=== PATIENT | female | born 1985 | race African-American/Black ===

== ENCOUNTER 2017-11-28 16:23 | Outpatient (REF) | payer MEDICAID, SELFPAY ==
--- NOTE | 2017-11-28 15:30 | PAPFT_PTH ---
PATIENT: Magnolia Gipson LOC: [facility]#:[id number] AGE/SX: 32/F ROOM: RE11/28/[address]: Dottie Mohan : 1985 BED: DIS: 11/28/2017 SPEC #: [id number] RECD: 11/29/17 12:55 STATUS: MCKAY REAreli #: [id number] OLIVIA: 11/28/17 15:[address]: Dottie Mohan DEPT: [facility] Cytology RECD BY: Alexandra Ross Tissues: 1 - CX/ENDOCX FOR PAP SMEARS Procedures: PAP THIN PREP/UVM Screening HPV DNA PROBE Comments: [id number] (CHLAMYDIA GC)
[2017-11-30 14:59] LABS: Chlamydia Result Negative; GC Result Negative; Specimen Description SEE COMMENTS
== END 2017-11-28 16:24 ==
LOC: NCHCN 16:23
PROVIDERS: PCP Family Medicine; Visit Provider Family Medicine
DX: Z11.3 Encounter for screening for infections with a predominantly sexual mode of transmission (principal); Z12.4 Encounter for screening for malignant neoplasm of cervix; Z11.51 Encounter for screening for human papillomavirus (HPV)
CPT/HCPCS: 87491; 87591; 88142; 87624

== ENCOUNTER 2017-11-30 15:41 | Outpatient (CLI) | payer MEDICAID, SELFPAY ==
[2017-11-30 17:09] LABS: HCT 37.9 % (36.0-46.0); HGB 12.5 g/dL (12.0-15.5); Mean Corpuscular Hemoglobin 30.7 pg (27.0-33.0); Mean Corpuscular Volume 93.1 fL (80-95); Mean Platelet Volume 9.3 fL (8.0-11.0); Platelet Count 366 x1000/uL (130-400); RBC 4.07 m/cumm (4.00-5.20); RBC Distribution Width 13.1 % (11.7-14.6); White Blood Cell Count 11.08 k/cumm (4.4-10.8)
[2017-12-02 20:24] LABS: ALT 37 U/L (7-45); ActiTest Grade A0; ActiTest Interpretation no activity; ActiTest Score 0.14; Alpha-2-Macroglobulin 172 mg/dL (100 - 280); Apoliprotein A1 147 mg/dL (>=140); Bilirubin, Total 0.3 mg/dL (<=1.2); FibroTest Interpretation no fibrosis; FibroTest Score 0.05; FibroTest Stage F0; GGT 36 U/L (5 - 36); Haptoglobin 173 mg/dL (30 - 200)
== END 2017-11-30 15:42 ==
PROVIDERS: PCP Family Medicine; Visit Provider Family Medicine
DX: B19.20 Unspecified viral hepatitis C without hepatic coma (principal)
CPT/HCPCS: 36415; 82172; 82247; 82977; 83010; 83883; 84460; 85027

== ENCOUNTER 2017-12-06 11:43 | Outpatient (CLI) | payer MEDICAID, SELFPAY ==
[2017-12-07 11:57] LABS: HIV-1/2 Ag & Ab Screen Negative (NEGAT)
[2017-12-07 12:06] LABS: Hepatitis B Surface Ag Negative (NEGAT)
[2017-12-07 12:29] LABS: Hep A Total Ab w Rflx IgM Positive (NEGAT)
[2017-12-07 12:37] LABS: Hep B Core Antibody Negative (NEGAT)
[2017-12-08 09:40] LABS: HCV Genotype 1a (Undetected)
[2017-12-14 09:57] LABS: Hep A Antibody IgM Negative (NEGAT)
== END 2017-12-06 11:44 ==
PROVIDERS: PCP Family Medicine; Visit Provider Family Medicine
DX: B19.20 Unspecified viral hepatitis C without hepatic coma (principal); Z11.4 Encounter for screening for human immunodeficiency virus [HIV]
CPT/HCPCS: 36415; 86704; 86709; 87340; 87389; 87521

== ENCOUNTER 2018-01-24 15:06 | Outpatient (REF) | payer MEDICAID, SELFPAY ==
[2018-01-24 15:29] LABS: Bilirubin Negative (Negative); Blood Negative (Negative); Clarity Sl Cloudy; Glucose Negative (Negative); Ketones Negative (Negative); Leukocyte Esterase Negative (Negative); Nitrite Negative (Negative); Urobilinogen 0.2 EU/dL (Up TO 0.2)
[2018-01-26 13:26] LABS: Chlamydia Result Negative; GC Result Negative; Specimen Description URINE
== END 2018-01-24 15:26 ==
LOC: NCHCN 15:06
PROVIDERS: PCP Family Medicine; Visit Provider Nurse Practitioner Family
DX: R10.2 Pelvic and perineal pain (principal)
CPT/HCPCS: 87491; 87591; 81003; 87480; 87510; 87660

== ENCOUNTER 2018-07-19 12:00 | Outpatient (CLI) | payer MEDICAID, SELFPAY ==
[2018-07-19 13:01] LABS: HCG Quant, Pregnancy 1 mIU/mL (1-3)
== END 2018-07-19 12:20 ==
PROVIDERS: Obstetrics & Gynecology Gynecology; PCP Family Medicine; Visit Provider Obstetrics & Gynecology
DX: Z34.91 Encounter for supervision of normal pregnancy, unspecified, first trimester (principal); Z01.84 Encounter for antibody response examination
CPT/HCPCS: 36415; 86850; 86900; 86901; 84702

== ENCOUNTER 2018-07-25 09:35 | Outpatient (CLI) | payer MEDICAID, SELFPAY ==
[2018-07-25 11:24] LABS: HCG Quant, Pregnancy 1 mIU/mL (1-3)
== END 2018-07-25 09:55 ==
PROVIDERS: Obstetrics & Gynecology Gynecology; PCP Family Medicine; Visit Provider Obstetrics & Gynecology
DX: Z34.91 Encounter for supervision of normal pregnancy, unspecified, first trimester (principal)
CPT/HCPCS: 36415; 84702

== ENCOUNTER 2019-05-08 21:40 | Outpatient (REF) | payer MEDICAID, SELFPAY ==
[2019-05-08 20:16] LABS: *AMPHETAMINES SCREEN URINE Negative (Negative); *BARBITURATES SCREEN URINE Negative (Negative); *BENZODIAZEPINES SCREEN URINE Negative (Negative); Cannabinoids THC Negative (Negative); Cocaine Screen,Urine POSITIVE (Negative); METHADONE URINE SCREEN Negative (Negative); OPIATES URINE SCREEN Negative (Negative)
[2019-05-08 20:22] LABS: Tricyclic Antidepressants Negative (Negative)
[2019-05-10 14:15] LABS: Chlamydia Result Negative (Negative); GC Result Negative (Negative)
[2019-05-15 13:58] LABS: Buprenorphine Negative; Norbuprenorphine Negative
== END 2019-05-08 22:00 ==
LOC: LBN 21:40
PROVIDERS: PCP Family Medicine; Visit Provider Advanced Practice Midwife
DX: Z34.91 Encounter for supervision of normal pregnancy, unspecified, first trimester (principal); Z11.3 Encounter for screening for infections with a predominantly sexual mode of transmission
CPT/HCPCS: 80307; 87491; 87591; 87086

== ENCOUNTER 2019-05-22 11:03 | Outpatient (CLI) | payer MEDICAID, SELFPAY ==
[2019-05-22 11:38] LABS: Abs Immature Grans 0.02 k/cumm (0.0-0.09); Absolute Basophil Count 0.03 k/cumm (0.0-0.2); Absolute Eosinophil Count 0.19 k/cumm (0.0-0.7); Absolute Lymphocyte Count 2.31 k/cumm (1.2-3.4); Absolute Monocyte Count 0.68 k/cumm (0.11-0.7); Absolute Neutrophil Count 6.18 k/cumm (1.2-6.7); Basophils % 0.3; HCT 34.1 % (36.0-46.0); HGB 11.2 g/dL (12.0-15.5); Immature Grans % 0.2 %; Lymphocytes % 24.5; Mean Corp. HGB Concentration 32.8 g/dL (32.0-36.0); Mean Corpuscular Hemoglobin 30.9 pg (27.0-33.0); Mean Corpuscular Volume 94.2 fL (80-95); Mean Platelet Volume 8.9 fL (8.0-11.0); Monocytes % 7.2; Neutrophils % 65.8; Platelet Count 343 x1000/uL (130-400); RBC 3.62 m/cumm (4.00-5.20); RBC Distribution Width 13.3 % (11.7-14.6); White Blood Cell Count 9.41 k/cumm (4.4-10.8)
[2019-05-22 12:32] LABS: ALT 27 U/L (14-59); AST 14 U/L (15-37); Albumin 3.1 g/dL (3.4-5.0); Alkaline Phosphatase 49 U/L (46-116); Bilirubin, Direct 0.07 mg/dL (0.00-0.20); Bilirubin, Total 0.2 mg/dL (0.2-1.0); TSH (W/Ref FT4) 1.77 uIU/mL (0.36-3.74); Total Protein 6.7 g/dL (6.4-8.2)
[2019-05-23 09:33] LABS: Hepatitis B Surface Ag Negative (Negative)
[2019-05-23 11:07] LABS: HIV-1/2 Ag & Ab Screen Negative (Negative)
[2019-05-23 11:18] LABS: Hepatitis C Ab w Rflx HCV PCR Reactive (Negative)
[2019-05-23 12:01] LABS: Rubella IgG Ab (UVM) Positive (See Note); Varicella IgG Antibody Positive (See Note)
[2019-05-23 15:05] LABS: Syphilis Total Ab w/Reflex Nonreactive (Nonreactive)
[2019-05-25 08:56] LABS: HCV RNA Detection Quantitative 7725 IU/mL (Undetected)
== END 2019-05-22 11:23 ==
PROVIDERS: PCP Family Medicine; Visit Provider Advanced Practice Midwife
DX: Z32.01 Encounter for pregnancy test, result positive (principal); Z34.90 Encounter for supervision of normal pregnancy, unspecified, unspecified trimester; Z11.4 Encounter for screening for human immunodeficiency virus [HIV]; Z11.59 Encounter for screening for other viral diseases; Z01.84 Encounter for antibody response examination
CPT/HCPCS: 36415; 80076; 86787; 86803; 86850; 86900; 86901; 87340; 87389; 84443; 85025; 86762; 86780; 87522

== ENCOUNTER 2019-06-04 01:08 | Outpatient (CLI) | payer MEDICAID, SELFPAY ==
--- NOTE | 2019-06-04 12:45 | DI.US_ITS ---
EXAM: US OB 2-3 TRIMESTER CLINICAL HISTORY: MORPHOLOGY, Z34.90 SUPERVISION NORMAL TECHNIQUE: Ultrasound performed using standard protocol. COMPARISON: No exams were available for comparison FINDINGS: Fetus is in breech position. Placenta is anterior. There is no evidence of placenta previa. The bi ometric measurements correspond to 18 weeks 2 days. No abnormalities are seen. The amount of amniotic fluid appears visually normal. IMPRESSION: survey is within normal limits.
== END 2019-06-04 01:28 ==
PROVIDERS: PCP Family Medicine; Visit Provider Obstetrics & Gynecology Gynecology
DX: Z34.92 Encounter for supervision of normal pregnancy, unspecified, second trimester (principal); Z3A.18 18 weeks gestation of pregnancy
CPT/HCPCS: 76805

== ENCOUNTER 2019-06-26 11:08 | Outpatient (CLI) | payer MEDICAID, SELFPAY ==
[2019-06-26 12:22] LABS: Kit/Specimen SENT
[2019-06-26 12:34] LABS: Glucose,1 Hr (Glucola) 72 mg/dL (80-140)
[2019-06-28 16:56] LABS: AFP 53.4 ng/mL; Calculated age at EDD 32 years; GA used in risk estimate Scan estimate; IVF Pregnancy No; Initial or repeat testing Initial testing; Insulin dependent diabetes No; Maternal Weight 223 lbs; Number of Fetuses 1; Prev Pregnancy w/NTD No; RECOMMENDED FOLLOW UP None.; Results Summary Normal risk
[2019-07-04 09:58] LABS: Result Summary NEGATIVE; Specimen WB Whole Blood
== END 2019-06-26 11:28 ==
PROVIDERS: Advanced Practice Midwife; PCP Family Medicine; Visit Provider Obstetrics & Gynecology Gynecology
DX: Z34.91 Encounter for supervision of normal pregnancy, unspecified, first trimester (principal); Z36.89 Encounter for other specified antenatal screening
CPT/HCPCS: 36415; 82950; 81220; 82105

== ENCOUNTER 2019-08-14 00:58 | Outpatient (CLI) | payer MEDICAID, SELFPAY ==
[2019-08-14 13:23] LABS: HCT 30.6 % (36.0-46.0); HGB 10.2 g/dL (12.0-15.5); Mean Corp. HGB Concentration 33.3 g/dL (32.0-36.0); Mean Corpuscular Hemoglobin 31.9 pg (27.0-33.0); Mean Corpuscular Volume 95.6 fL (80-95); Mean Platelet Volume 9.3 fL (8.0-11.0); Platelet Count 420 x1000/uL (130-400); RBC Distribution Width 13.1 % (11.7-14.6); White Blood Cell Count 18.01 k/cumm (4.4-10.8)
[2019-08-14 13:29] LABS: Glucose,1 Hr (Glucola) 89 mg/dL (80-140)
[2019-08-14 13:35] LABS: ALT 27 U/L (14-59); AST 16 U/L (15-37); Albumin 2.6 g/dL (3.4-5.0); Alkaline Phosphatase 58 U/L (46-116); Anion Gap 9.8 mmol/L (3-11); BUN 6 mg/dL (7-18); Bilirubin, Total 0.2 mg/dL (0.2-1.0); CO2 23.2 mmol/L (21.0-32.0); CREATININE 0.61 mg/dL (0.55-1.02); Calcium 8.9 mg/dL (8.5-10.1); Chloride 106 mmol/L (98-107); Glucose 87 mg/dL (74-106); Potassium 3.9 mmol/L (3.5-5.1); Sodium 139 mmol/L (136-145); Total Protein 6.8 g/dL (6.4-8.2)
[2019-08-14 14:19] LABS: *AMPHETAMINES SCREEN URINE Negative (Negative); *BARBITURATES SCREEN URINE Negative (Negative); *BENZODIAZEPINES SCREEN URINE Negative (Negative); Cannabinoids THC Negative (Negative); Cocaine Screen,Urine Negative (Negative); METHADONE URINE SCREEN Negative (Negative); OPIATES URINE SCREEN Negative (Negative)
[2019-08-14 14:20] LABS: Tricyclic Antidepressants Negative (Negative)
== END 2019-08-14 01:18 ==
LOC: LBO 00:58 → LBN 12:37
PROVIDERS: Obstetrics & Gynecology; Obstetrics & Gynecology Gynecology; PCP Family Medicine; Visit Provider Advanced Practice Midwife
DX: O98.412 Viral hepatitis complicating pregnancy, second trimester (principal); O99.322 Drug use complicating pregnancy, second trimester
CPT/HCPCS: 80053; 80307; 82950; 85027

== ENCOUNTER 2019-08-28 02:02 | Outpatient (CLI) | payer MEDICAID, SELFPAY ==
--- NOTE | 2019-08-28 06:30 | DI.US_ITS ---
EXAM: US OB COLEEN WEIGHT CLINICAL HISTORY: Size greater than dates,Z34.90. COMPARISON: US OB 2-3 TRIMESTER from 06/04/2019 TECHNIQUE: Transabdominal obstetrical ultrasound performed. FINDINGS: Sonographic images demonstrate a single intrauterine gestation in cephalic position. Sonographically assessed gestational age is: 30 +5 weeks Estimated date of delivery based on this ultrasound is: November 11 Estimated date of delivery based upon 1st ultrasound: 02 November 2019. heart rate motion is Dopplered at: 160 bpm. Amniotic fluid index: 14.2 cm Estimated weight 1641 grams, 45th percentile IMPRESSION: Appropriate interval growth. DATA REPOSITORY:
== END 2019-08-28 02:22 ==
PROVIDERS: PCP Family Medicine; Visit Provider Obstetrics & Gynecology
DX: O26.843 Uterine size-date discrepancy, third trimester (principal); Z3A.30 30 weeks gestation of pregnancy
CPT/HCPCS: 76816

== ENCOUNTER 2019-09-11 11:15 | Outpatient (REF) | payer MEDICAID, SELFPAY ==
[2019-09-11 12:10] LABS: *AMPHETAMINES SCREEN URINE Negative (Negative); *BARBITURATES SCREEN URINE Negative (Negative); *BENZODIAZEPINES SCREEN URINE Negative (Negative); Cannabinoids THC Negative (Negative); Cocaine Screen,Urine Negative (Negative); METHADONE URINE SCREEN Negative (Negative); OPIATES URINE SCREEN Negative (Negative)
[2019-09-11 12:11] LABS: Tricyclic Antidepressants Negative (Negative)
[2019-09-16 07:40] LABS: Buprenorphine Negative; Norbuprenorphine Negative
== END 2019-09-11 11:35 ==
LOC: LBN 11:15
PROVIDERS: PCP Family Medicine; Visit Provider Obstetrics & Gynecology
DX: Z34.93 Encounter for supervision of normal pregnancy, unspecified, third trimester (principal)
CPT/HCPCS: 80307

== ENCOUNTER 2019-09-18 17:27 | Outpatient (REF) | payer MEDICAID, SELFPAY ==
[2019-09-18 16:05] LABS: Abs Immature Grans 0.15 k/cumm (0.0-0.09); Basophils % 0.3; Eosinophils % 1.7; HCT 30.3 % (36.0-46.0); HGB 9.9 g/dL (12.0-15.5); Immature Grans % 0.8 %; Lymphocytes % 23.6; Mean Corp. HGB Concentration 32.7 g/dL (32.0-36.0); Mean Platelet Volume 8.8 fL (8.0-11.0); Monocytes % 5.7; Neutrophils % 67.9; Platelet Count 416 x1000/uL (130-400); RBC 3.19 m/cumm (4.00-5.20); White Blood Cell Count 18.63 k/cumm (4.4-10.8)
[2019-09-18 16:06] LABS: Absolute Basophil Count 0.06 k/cumm (0.0-0.2); Absolute Eosinophil Count 0.32 k/cumm (0.0-0.7); Absolute Monocyte Count 1.06 k/cumm (0.11-0.7); Absolute Neutrophil Count 12.65 k/cumm (1.2-6.7)
[2019-09-18 16:12] LABS: ALT 26 U/L (14-59); AST 17 U/L (15-37); Albumin 2.5 g/dL (3.4-5.0); Alkaline Phosphatase 85 U/L (46-116); Anion Gap 10.2 mmol/L (3-11); BUN 7 mg/dL (7-18); Bilirubin, Total 0.4 mg/dL (0.2-1.0); CO2 20.8 mmol/L (21.0-32.0); CREATININE 0.73 mg/dL (0.55-1.02); Calcium 8.5 mg/dL (8.5-10.1); Chloride 103 mmol/L (98-107); Glucose 77 mg/dL (74-106); Potassium 3.7 mmol/L (3.5-5.1); Sodium 134 mmol/L (136-145); Total Protein 6.7 g/dL (6.4-8.2)
== END 2019-09-18 17:47 ==
LOC: LBN 17:27
PROVIDERS: PCP Family Medicine; Visit Provider Obstetrics & Gynecology
DX: O13.3 Gestational [pregnancy-induced] hypertension without significant proteinuria, third trimester (principal)
CPT/HCPCS: 80053; 85025

== ENCOUNTER 2019-09-25 12:47 | Outpatient (CLI) | payer MEDICAID, SELFPAY ==
--- NOTE | 2019-09-25 09:30 | DI.US_ITS ---
EXAM: US LOWER EXTREMITY VENOUS RT CLINICAL HISTORY: LE edema RT, 34w EGA, R60.0, Z34.90 TECHNIQUE: Ultrasound performed using standard protocol. COMPARISON: US US OB COLEEN WEIGHT from 08/28/2019 FINDINGS: Duplex evaluation of the deep venous system of the right lower extremity was performed according to t he usual protocol. There is no evidence of deep venous thrombosis. A small area of localized superf icial calf vein thrombus is incidentally noted. IMPRESSION: No evidence of deep venous thrombosis of the right lower extremity. DATA REPOSITORY:
== END 2019-09-25 13:07 ==
PROVIDERS: PCP Family Medicine; Visit Provider Obstetrics & Gynecology Gynecology
DX: Z3A.34 34 weeks gestation of pregnancy; O12.03 Gestational edema, third trimester
CPT/HCPCS: 93971

== ENCOUNTER 2019-10-09 00:32 | Outpatient (CLI) | payer MEDICAID, SELFPAY ==
--- NOTE | 2019-10-09 10:45 | DI.US_ITS ---
EXAM: US OB COLEEN WEIGHT CLINICAL HISTORY: Size greater than dates, normal , Z34.90. TECHNIQUE: Transabdominal obstetrical ultrasound performed. COMPARISON: US US OB COLEEN WEIGHT from 08/28/2019 FINDINGS: Transabdominal obstetrical ultrasound performed. FINDINGS: Number of fetuses: One. position: Vertex. Placental location: Anterior. No evidence of previa. BIOMETRIC DATA: BPD: 89mm = 36+ 1 weeks HC: 326mm = 37+ 0 weeks AC: 328mm = 36+ 5 weeks FL: 71 mm = 36+ 3 EFW: 2990 grms 56% Composite Age: 36+ 4 weeks EDC: 02 November 2019 Heart Rate: 160BPM Amniotic fluid index: 14.2 cm. Amount of fluid is within normal limits. IMPRESSION: size and weight are within the normal range. Appropriate interval growth. Normal COLEEN. DATA REPOSITORY:
== END 2019-10-09 00:52 ==
PROVIDERS: PCP Family Medicine; Visit Provider Obstetrics & Gynecology
DX: O26.843 Uterine size-date discrepancy, third trimester (principal); Z3A.36 36 weeks gestation of pregnancy
CPT/HCPCS: 76816

== ENCOUNTER 2019-10-09 17:13 | Outpatient (REF) | payer MEDICAID, SELFPAY | END 2019-10-09 17:33 | LOC: LBN 17:13 | PROVIDERS: PCP Family Medicine; Visit Provider Obstetrics & Gynecology | DX: Z34.93 Encounter for supervision of normal pregnancy, unspecified, third trimester (principal); Z36.85 Encounter for antenatal screening for Streptococcus B | CPT/HCPCS: 87081 ==

== ENCOUNTER 2019-10-17 10:06 | Outpatient (CLI) | payer MEDICAID, SELFPAY ==
[2019-10-17 16:03] LABS: Abs Immature Grans 0.29 k/cumm (0.0-0.09); Absolute Basophil Count 0.06 k/cumm (0.0-0.2); Absolute Eosinophil Count 0.33 k/cumm (0.0-0.7); Absolute Monocyte Count 1.51 k/cumm (0.11-0.7); Absolute Neutrophil Count 12.25 k/cumm (1.2-6.7); Basophils % 0.3; Eosinophils % 1.7; HCT 29.9 % (36.0-46.0); HGB 9.8 g/dL (12.0-15.5); Immature Grans % 1.5 %; Lymphocytes % 24.6; Mean Corp. HGB Concentration 32.8 g/dL (32.0-36.0); Mean Corpuscular Hemoglobin 31.5 pg (27.0-33.0); Mean Corpuscular Volume 96.1 fL (80-95); Mean Platelet Volume 8.8 fL (8.0-11.0); Monocytes % 7.9; Platelet Count 414 x1000/uL (130-400); RBC 3.11 m/cumm (4.00-5.20); RBC Distribution Width 13.6 % (11.7-14.6); White Blood Cell Count 19.14 k/cumm (4.4-10.8)
[2019-10-17 16:08] LABS: Absolute Lymphocyte Count 4.71 k/cumm (1.2-3.4)
[2019-10-17 16:24] LABS: ALT 18 U/L (14-59); AST 17 U/L (15-37); Albumin 2.5 g/dL (3.4-5.0); Alkaline Phosphatase 113 U/L (46-116); Anion Gap 10.5 mmol/L (3-11); BUN 8 mg/dL (7-18); Bilirubin, Total 0.3 mg/dL (0.2-1.0); CO2 20.5 mmol/L (21.0-32.0); CREATININE 0.67 mg/dL (0.55-1.02); Calcium 8.8 mg/dL (8.5-10.1); Chloride 104 mmol/L (98-107); Glucose 100 mg/dL (74-106); Potassium 4.4 mmol/L (3.5-5.1); Sodium 135 mmol/L (136-145); Total Protein 6.5 g/dL (6.4-8.2)
== END 2019-10-17 10:26 ==
PROVIDERS: PCP Family Medicine; Visit Provider Obstetrics & Gynecology
DX: O13.3 Gestational [pregnancy-induced] hypertension without significant proteinuria, third trimester (principal); Z3A.37 37 weeks gestation of pregnancy
CPT/HCPCS: 36415; 80053; 85025

== ENCOUNTER 2019-11-05 11:18 | Outpatient (CLI) | payer MEDICAID, SELFPAY ==
--- NOTE | 2019-11-05 11:20 | HPE_ITS ---
Date of service: 11/05/19 Time of Service: 11:20 Assessment and Plan Assessment and plan (1) Gestational HTN: Status: Acute Assessment and plan: In light of the fact that the patient has been on her due date, and multiple, with a reasonably favorable cervix, will proceed with labor induction. Benefits of Pitocin induction of labor were explained to the patient at length. She consents to induction. She will present to labor and delivery tomorrow morning at 630 for initial intake. Previous delivery was short, however baby today is larger than her previous of 5 pound delivery. She will ambulate frequently, denies need for pain medication. (2) Partial thrombosis: Status: Acute (3) Leg edema, right: Status: Acute (4) Gestational hypertension: Status: Acute (5) Hepatitis C: Status: Chronic (6) History of IUFD: Status: Resolved (7) Drug abuse: Status: Resolved (8) History of bacterial endocarditis: Status: Resolved History of Present Illness History of Present Illness Chief Complaint: Labor induction Review of Systems Narrative: Patient seen in the office today for routine care at 40 weeks and 1 day. She continues to have lower extremity edema, however her weight is diminished. Baby is moving and active. She denies signs or symptoms of preeclampsia. She has occasional irregular contractions. We discussed at length risk benefits and alternatives of labor induction. She will present to labor and delivery on November 05 for Pitocin induction of labor. Constitutional Constitutional: Reports as per HPI Cardiovascular Cardiovascular: Reports system reviewed and no additional complaints, except as documented Respiratory Respiratory: Reports system reviewed and no additional complaints, except as documented Gastrointestinal Gastrointestinal: Reports system reviewed and no additional complaints, except as documented Genitourinary Genitourinary: Reports system reviewed and no additional complaints, except as documented Neurologic Neurologic: Reports system reviewed and no additional complaints, except as documented Psychiatric Psychiatric: Reports system reviewed and no additional complaints, except as documented PFSH Family History (Updated 03/15/19 @ 08:35 by Yaneli Morales MD) Other Adopted Social History (Updated 03/15/19 @ 12:35 by Yaneli Morales MD) Smoking/Tobacco Use Status: Current every day Drug use: Rarely Adopted: Yes (Does not know family history. adoptive mother lives in [place]) Household members: children and other Details: Lives with her son. Patient does not live with boyfriend. Number of Children: 1 current occupation: Patient is employed. She has a car. 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 She reports that he does not want any more children. Distant history of an IUFD at 20 weeks. 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 Most recent uncomplicated History History 4 Para 1 Hx # Term Pregnancies 1 Multiple births 0 Hx # Pregnancies 1 Ectopic pregnancies 0 AB induced Hx Number of Living Children 1 AB spontaneous 1 Past Pregnancies Del. Date GA/Weeks # Outcome Route Wgt Sex Labor Lgth Anesthes ia Location Prov Complic Unknown 02/04/13 20 No Unsuccessful vaginal to pical cream local regional chrissy cnm other 07/19/18 6 Unsuccessful Delivery Date: Yaneli Anthony Delivery Date: 02/04/13 iufd ARUN AWAN Delivery Date: 07/19/18 1st Trimester SAB Glory Pickett Home Medications and Allergies Home Medications Medication Instructions Recorded Confirmed Type vitamins no.121-iron 28 tab PO DAILY tab 04/23/19 11/05/19 History mg-folic acid 800 mcg tablet pantoprazole 20 mg tablet,delayed 20 mg PO DAILY #60 tab 08/28/19 11/05/19 Rx release ferrous sulfate 324 mg (65 mg 324 mg PO DAILY #90 tab 09/11/19 11/05/19 Rx iron) tablet,delayed release aspirin 81 mg tablet,delayed 81 mg PO DAILY #60 tab 09/25/19 11/05/19 Rx release Allergies Allergy/AdvReac Type Severity Reaction Status Date / Time No Known Allergies Allergy Verified 11/05/19 10:53 Exam Const General: cooperative and well groomed Nutritional Appearance: overweight Orientation: alert and oriented x3 Eyes General: appearance normal, both eyes and all related structures Resp Effort & Inspection: normal respiratory effort Cardio Rate: regular rate Rhythm: regular rhythm GI Inspection: normal to inspection OB/External & Speculum: external exam normal and no bleeding Manual OB Exam: dilated 2, effaced 50% and station high Other: Estimated weight by Brian's approximately 8 pounds. Fetus is vertex. Neuro General: patient alert and patient oriented x3 Cranial Nerves: CN's II-XI intact bilaterally Cognition: normal cognition Speech: speech normal Extrem General: no calf tenderness and edema (2+ bilaterally) COVID-19 Screening Have you,or household,traveled outside [place] in last 14 days?: NO
[2019-11-06 01:09] LABS: COVID-19 RT-PCR UVMMC Result Negative (Negative)
== END 2019-11-05 11:38 ==
PROVIDERS: PCP Family Medicine; Visit Provider Obstetrics & Gynecology
DX: Z11.59 Encounter for screening for other viral diseases (principal)
CPT/HCPCS: 80053; 85027; 86900; 86901; 99223; U0003

== ENCOUNTER 2019-11-06 07:13 | Inpatient (IN) | payer MEDICAID, SELFPAY ==
--- NOTE | 2019-11-06 07:14 | W.PM.PROGNOT ---
Date of Service Date of service: 11/06/19 Time of Service: :14 Assessment and Plan Assessment and plan (1) Leg edema, right: Status: Acute (2) Gestational hypertension: Status: Acute (3) Hepatitis C: Status: Chronic (4) History of IUFD: Status: Resolved (5) HRP (high risk ): Status: Acute Subjective Subjective Patient reports: no new complaints Interval history since last seen: Patient here is here this morning for induction of labor at term. has been complicated by lower extremity edema, early substance use during , hepatitis C, and proteinuria. Induction of labor plans again discussed today. Patient understands the process. We will proceed with labor induction at 40 weeks and 2 days. Over testing that was done yesterday is back and negative.
[2019-11-06 08:50] LABS: HCT 31.2 % (36.0-46.0); HGB 10.4 g/dL (12.0-15.5); Mean Corp. HGB Concentration 33.3 g/dL (32.0-36.0); Mean Corpuscular Hemoglobin 32.2 pg (27.0-33.0); Mean Corpuscular Volume 96.6 fL (80-95); Mean Platelet Volume 8.9 fL (8.0-11.0); Platelet Count 490 x1000/uL (130-400); RBC 3.23 m/cumm (4.00-5.20); RBC Distribution Width 14.1 % (11.7-14.6); White Blood Cell Count 21.16 k/cumm (4.4-10.8)
[2019-11-06] MEDS: Lactated Ringers 1,000 ML 125 ML IV ×2 (08:52→16:30)
[2019-11-06] MEDS: Oxytocin/Normal Saline 30 UNITS/500 ML BAG IV (08:52)
[2019-11-06 08:58] LABS: ALT 18 U/L (14-59); AST 14 U/L (15-37); Albumin 2.4 g/dL (3.4-5.0); Alkaline Phosphatase 130 U/L (46-116); BUN 9 mg/dL (7-18); Bilirubin, Total 0.2 mg/dL (0.2-1.0); CREATININE 0.78 mg/dL (0.55-1.02); Calcium 8.9 mg/dL (8.5-10.1); Chloride 104 mmol/L (98-107); Glucose 98 mg/dL (74-106); Potassium 3.7 mmol/L (3.5-5.1); Sodium 136 mmol/L (136-145); Total Protein 6.3 g/dL (6.4-8.2)
[2019-11-06 11:33] LABS: *AMPHETAMINES SCREEN URINE Negative (Negative); *BARBITURATES SCREEN URINE Negative (Negative); *BENZODIAZEPINES SCREEN URINE Negative (Negative); Cannabinoids THC Negative (Negative); Cocaine Screen,Urine Negative (Negative); METHADONE URINE SCREEN Negative (Negative); OPIATES URINE SCREEN Negative (Negative)
[2019-11-06 11:37] LABS: Tricyclic Antidepressants Negative (Negative)
--- NOTE | 2019-11-06 14:11 | W.PM.PROGNOT ---
Date of Service Date of service: 11/06/19 Time of Service: 14:12 Assessment and Plan Assessment and plan (1) Normal labor: Status: Acute Assessment and plan: Continue induction. Anticipate vaginal delivery. Subjective Subjective Interval history since last seen: Patient seen on labor and delivery. She is doing well. Her Pitocin is at 8. She is kip every 3 minutes palpating moderately. She has a category 1 strip with heart tones in the 130s. Cervical exam shows cervix that is 3 cm 80% and -2 station she had artificial rupture of membranes for clear fluid. We will continue to monitor her labor progress and her need for Pitocin augmentation. My anticipation would be for normal spontaneous vaginal delivery. At this point she declines pain medications. Objective Objective Clinical Data: Abnormal lab results 11/06/19 11/06/19 Range/Units 08:30 08:30 WBC 21.16 H (4.4-10.8) k/cumm RBC 3.23 L (4.00-5.20) m/cumm Hgb 10.4 L (12.0-15.5) g/dL Hct 31.2 L (36.0-46.0) % MCV 96.6 H (80-95) fL Plt Count 490 H (130-400) x1000/uL AST 14 L (15-37) U/L Alkaline Phosphatase 130 H (46-116) U/L Total Protein 6.3 L (6.4-8.2) g/dL Albumin 2.4 L (3.4-5.0) g/dL Laboratory Results WBC 21.16 k/cumm (4.4-10.8) H 11/06/19 08:30 RBC 3.23 m/cumm (4.00-5.20) L 11/06/19 08:30 Hgb 10.4 g/dL (12.0-15.5) L 11/06/19 08:30 Hct 31.2 % (36.0-46.0) L 11/06/19 08:30 MCV 96.6 fL (80-95) H 11/06/19 08:30 MCH 32.2 pg (27.0-33.0) 11/06/19 08:30 MCHC 33.3 g/dL (32.0-36.0) 11/06/19 08:30 RDW 14.1 % (11.7-14.6) 11/06/19 08:30 Plt Count 490 x1000/uL (130-400) H 11/06/19 08:30 MPV 8.9 fL (8.0-11.0) 11/06/19 08:30 Sodium 136 mmol/L (136-145) 11/06/19 08:30 Potassium 3.7 mmol/L (3.5-5.1) 11/06/19 08:30 Chloride 104 mmol/L (98-107) 11/06/19 08:30 Carbon Dioxide 22.0 mmol/L (21.0-32.0) 11/06/19 08:30 Anion Gap 10.0 mmol/L (3-11) 11/06/19 08:30 BUN 9 mg/dL (7-18) 11/06/19 08:30 Creatinine 0.78 mg/dL (0.55-1.02) 11/06/19 08:30 Estimated GFR/1.73 m2 >= 60.00 (mL/min/1.73m2) 11/06/19 08:30 Glucose 98 mg/dL (74-106) 11/06/19 08:30 Calcium 8.9 mg/dL (8.5-10.1) 11/06/19 08:30 Total Bilirubin 0.2 mg/dL (0.2-1.0) 11/06/19 08:30 AST 14 U/L (15-37) L 11/06/19 08:30 ALT 18 U/L (14-59) 11/06/19 08:30 Alkaline Phosphatase 130 U/L (46-116) H 11/06/19 08:30 Total Protein 6.3 g/dL (6.4-8.2) L 11/06/19 08:30 Albumin 2.4 g/dL (3.4-5.0) L 11/06/19 08:30 Urine Opiates Screen Negative (Negative) 11/06/19 09:30 Urine Methadone Screen Negative (Negative) 11/06/19 09:30 Ur Barbiturates Screen Negative (Negative) 11/06/19 09:30 Ur Tricyclics Screen Negative (Negative) 11/06/19 09:30 Ur Amphetamines Screen Negative (Negative) 07/14/20 09:30 U Benzodiazepines Scrn Negative (Negative) 11/06/19 09:30 Urine Cocaine Screen Negative (Negative) 11/06/19 09:30 Ur THC Screen Negative (Negative) 11/06/19 09:30 Patient ABO/Rh A Positive 11/06/19 08:30 Antibody Screen Negative 11/06/19 08:30
--- NOTE | 2019-11-06 16:29 | W.PM.PROGNOT ---
Date of Service Date of service: 11/06/19 Time of Service: 16:29 Subjective Subjective Interval history since last seen: Doing well. More uncomfortable. SVE 5 cm, 80, -2 Continue present care KJ Objective Objective Clinical Data: Abnormal lab results 11/06/19 11/06/19 Range/Units 08:30 08:30 WBC 21.16 H (4.4-10.8) k/cumm RBC 3.23 L (4.00-5.20) m/cumm Hgb 10.4 L (12.0-15.5) g/dL Hct 31.2 L (36.0-46.0) % MCV 96.6 H (80-95) fL Plt Count 490 H (130-400) x1000/uL AST 14 L (15-37) U/L Alkaline Phosphatase 130 H (46-116) U/L Total Protein 6.3 L (6.4-8.2) g/dL Albumin 2.4 L (3.4-5.0) g/dL Laboratory Results WBC 21.16 k/cumm (4.4-10.8) H 11/06/19 08:30 RBC 3.23 m/cumm (4.00-5.20) L 11/06/19 08:30 Hgb 10.4 g/dL (12.0-15.5) L 11/06/19 08:30 Hct 31.2 % (36.0-46.0) L 11/06/19 08:30 MCV 96.6 fL (80-95) H 11/06/19 08:30 MCH 32.2 pg (27.0-33.0) 11/06/19 08:30 MCHC 33.3 g/dL (32.0-36.0) 11/06/19 08:30 RDW 14.1 % (11.7-14.6) 11/06/19 08:30 Plt Count 490 x1000/uL (130-400) H 11/06/19 08:30 MPV 8.9 fL (8.0-11.0) 11/06/19 08:30 Sodium 136 mmol/L (136-145) 11/06/19 08:30 Potassium 3.7 mmol/L (3.5-5.1) 11/06/19 08:30 Chloride 104 mmol/L (98-107) 11/06/19 08:30 Carbon Dioxide 22.0 mmol/L (21.0-32.0) 11/06/19 08:30 Anion Gap 10.0 mmol/L (3-11) 11/06/19 08:30 BUN 9 mg/dL (7-18) 11/06/19 08:30 Creatinine 0.78 mg/dL (0.55-1.02) 11/06/19 08:30 Estimated GFR/1.73 m2 >= 60.00 (mL/min/1.73m2) 11/06/19 08:30 Glucose 98 mg/dL (74-106) 11/06/19 08:30 Calcium 8.9 mg/dL (8.5-10.1) 11/06/19 08:30 Total Bilirubin 0.2 mg/dL (0.2-1.0) 11/06/19 08:30 AST 14 U/L (15-37) L 11/06/19 08:30 ALT 18 U/L (14-59) 11/06/19 08:30 Alkaline Phosphatase 130 U/L (46-116) H 11/06/19 08:30 Total Protein 6.3 g/dL (6.4-8.2) L 11/06/19 08:30 Albumin 2.4 g/dL (3.4-5.0) L 11/06/19 08:30 Urine Opiates Screen Negative (Negative) 11/06/19 09:30 Urine Methadone Screen Negative (Negative) 11/06/19 09:30 Ur Barbiturates Screen Negative (Negative) 11/06/19 09:30 Ur Tricyclics Screen Negative (Negative) 11/06/19 09:30 Ur Amphetamines Screen Negative (Negative) 11/06/19 09:30 U Benzodiazepines Scrn Negative (Negative) 11/06/19 09:30 Urine Cocaine Screen Negative (Negative) 11/06/19 09:30 Ur THC Screen Negative (Negative) 11/06/19 09:30 Patient ABO/Rh A Positive 11/06/19 08:30 Antibody Screen Negative 11/06/19 08:30
--- NOTE | 2019-11-06 18:13 | W.PM.OP ---
Date of service: 11/06/19 Time of Service: 18:13 Operative Note Operative Note DATE OF PROCEDURE: 11/06/19 PRE-OP DIAGNOSIS: Labor induction POST-OP DIAGNOSIS: same PROCEDURE: ANESTHESIA: none ESTIMATED BLOOD LOSS: 300 PATHOLOGY: none sent COMPLICATIONS: None Procedure Description: Patient complete and pushing. Vertex, RENALDO. Nuchal cord x 1, delivered through. Shoulders with Ease. 3 vessel cord. Cord blood obtained after delayed cord clamping. @nd degree periurethral laceration, repaired with 3'0 vicryl Female . APGARS and weight per nursing. Baby skin to skin with mom
[2019-11-06] MEDS: Ibuprofen 600 MG TAB PO (19:23)
[2019-11-06] MEDS: Acetaminophen 325 MG TAB 650 MG PO (19:24)
[2019-11-06] MEDS: Lidocaine 1% Multi-Dose 20 ML VIAL IJ (22:04)
[2019-11-06] MEDS: Hamamelis Leaf/Glycerin 100 EACH BOX PR (22:05)
[2019-11-07 07:24] LABS: HCT 28.5 % (36.0-46.0); HGB 9.3 g/dL (12.0-15.5); Mean Corp. HGB Concentration 32.6 g/dL (32.0-36.0); Mean Corpuscular Hemoglobin 31.3 pg (27.0-33.0); Mean Platelet Volume 9.7 fL (8.0-11.0); Platelet Count 429 x1000/uL (130-400); RBC 2.97 m/cumm (4.00-5.20); RBC Distribution Width 14.1 % (11.7-14.6); White Blood Cell Count 22.39 k/cumm (4.4-10.8)
[2019-11-07] MEDS: Ibuprofen 600 MG TAB PO ×2 (07:40→13:08)
[2019-11-07] MEDS: Acetaminophen 325 MG TAB 650 MG PO ×2 (07:40→13:08)
--- NOTE | 2019-11-07 10:43 | W.PM.PROGNOT ---
Date of Service Date of service: 11/07/19 Time of Service: 10:43 Assessment and Plan Assessment and plan (1) (normal spontaneous vaginal delivery): Status: Acute Assessment and plan: Continue routine care. Patient would request discharge today if appropriate. We will continue to ambulate, work on breast-feeding, rest as needed. (2) Partial thrombosis: Status: Acute (3) Hepatitis C: Status: Chronic Subjective Subjective Patient reports: no new complaints and feels better Interval history since last seen: Patient seen and examined today day #1. She is up ambulating. She is breast-feeding without much difficulty. Her pain is well controlled, lochia is physiologic Exam Const General: cooperative and healthy appearing Resp Effort & Inspection: normal respiratory effort Cardio Rate: regular rate Rhythm: regular rhythm GI Other: Abdomen soft, uterus is firm Neuro General: patient alert and patient oriented x3 Cognition: normal cognition Speech: speech normal Sensory Exam: no sensory deficits noted Extrem General: no calf tenderness bilaterally and pedal edema (3+ lower extremity edema) Objective Objective Clinical Data: Abnormal lab results 11/07/19 Range/Units 06:00 WBC 22.39 H (4.4-10.8) k/cumm RBC 2.97 L (4.00-5.20) m/cumm Hgb 9.3 L (12.0-15.5) g/dL Hct 28.5 L (36.0-46.0) % MCV 96.0 H (80-95) fL Plt Count 429 H (130-400) x1000/uL Vital Signs Pain Level 5 11/07/19 07:40 Intake & Output 11/06/19 11/06/19 11/07/19 11:59 23:59 11:59 Intake Total 954.167 / 954.167 Balance 954.167 / 954.167 Intake: IV 954.167 / 954.167 Laboratory Results WBC 22.39 k/cumm (4.4-10.8) H 11/07/19 06:00 RBC 2.97 m/cumm (4.00-5.20) L 11/07/19 06:00 Hgb 9.3 g/dL (12.0-15.5) L 11/07/19 06:00 Hct 28.5 % (36.0-46.0) L 11/07/19 06:00 MCV 96.0 fL (80-95) H 11/07/19 06:00 MCH 31.3 pg (27.0-33.0) 11/07/19 06:00 MCHC 32.6 g/dL (32.0-36.0) 11/07/19 06:00 RDW 14.1 % (11.7-14.6) 11/07/19 06:00 Plt Count 429 x1000/uL (130-400) H 11/07/19 06:00 MPV 9.7 fL (8.0-11.0) 11/07/19 06:00 Sodium 136 mmol/L (136-145) 11/06/19 08:30 Potassium 3.7 mmol/L (3.5-5.1) 11/06/19 08:30 Chloride 104 mmol/L (98-107) 11/06/19 08:30 Carbon Dioxide 22.0 mmol/L (21.0-32.0) 11/06/19 08:30 Anion Gap 10.0 mmol/L (3-11) 11/06/19 08:30 BUN 9 mg/dL (7-18) 11/06/19 08:30 Creatinine 0.78 mg/dL (0.55-1.02) 11/06/19 08:30 Estimated GFR/1.73 m2 >= 60.00 (mL/min/1.73m2) 11/06/19 08:30 Glucose 98 mg/dL (74-106) 11/06/19 08:30 Calcium 8.9 mg/dL (8.5-10.1) 11/06/19 08:30 Total Bilirubin 0.2 mg/dL (0.2-1.0) 11/06/19 08:30 AST 14 U/L (15-37) L 11/06/19 08:30 ALT 18 U/L (14-59) 11/06/19 08:30 Alkaline Phosphatase 130 U/L (46-116) H 11/06/19 08:30 Total Protein 6.3 g/dL (6.4-8.2) L 11/06/19 08:30 Albumin 2.4 g/dL (3.4-5.0) L 11/06/19 08:30 Urine Opiates Screen Negative (Negative) 11/06/19 09:30 Urine Methadone Screen Negative (Negative) 11/06/19 09:30 Ur Barbiturates Screen Negative (Negative) 11/06/19 09:30 Ur Tricyclics Screen Negative (Negative) 11/06/19 09:30 Ur Amphetamines Screen Negative (Negative) 11/06/19 09:30 U Benzodiazepines Scrn Negative (Negative) 11/06/19 09:30 Urine Cocaine Screen Negative (Negative) 11/06/19 09:30 Ur THC Screen Negative (Negative) 11/06/19 09:30 Patient ABO/Rh A Positive 11/06/19 08:30 Antibody Screen Negative 11/06/19 08:30
--- NOTE | 2019-11-07 10:49 | W.PM.DS.N ---
Date of service: 11/07/19 Time of Service: 10:49 DS: Diagnosis Discharge Diagnosis (1) (normal spontaneous vaginal delivery): Status: Acute (2) Partial thrombosis: Status: Acute (3) Hepatitis C: Status: Chronic Discharge Plan Disposition Patient Disposition: HOME Condition: Good Discharge Details Reason For Visit: LABOR Admit Date/Time: 11/06/19 07:13 Admit Provider: Glory Garcia Attending Provider: Glory Garcia Primary Care Provider: Dottie Mohan [facility] Course Hospital Course: Patient presented for labor admission at 40 weeks and 2 days due to term , favorable cervix, lower extremity edema and proteinuria. She received Pitocin for induction of labor. She had artificial rupture membranes for clear fluid. She rapidly progressed to the point that she went on to dilate completely and with good maternal effort pushed the vertex over an intact perineum. On inspection she was noted to have a second-degree right periurethral laceration which was repaired. She had an uncomplicated course. She is ambulating, tolerating regular diet, oral pain medication, and breast-feeding with ease. She will be discharged home when baby is stable to do so. Home Meds and New Rx's Prescriptions: No Action PNV no.569-mlwp-brshq acid 28 mg iron- 800 mcg tablet PO DAILY RF: 0 pantoprazole [Protonix] 20 mg tablet,delayed release (DR/EC) 20 mg PO DAILY Qty: 60 RF: 3 ferrous sulfate 324 mg (65 mg iron) tablet,delayed release (DR/EC) 324 mg PO DAILY Qty: 90 RF: 2 aspirin [Aspir-81] 81 mg tablet,delayed release (DR/EC) 81 mg PO DAILY Qty: 60 RF: 2 Discharge Instructions Instructions: Vaginal Delivery (DC) Stand Alone Forms: Post Vaginal Deliver Activity:: Activity as Tolerated Equipment/Supplies:: No Equipment Needed Diet:: Normal Diet Discharge Orders Discharge Orders: Discharge Order (Routine); Ordered 11/07/19 Ordered By: Glory Garcia DS: Summary Status at Discharge Functional status at discharge: independent ambulation Overall status at discharge: patient is back to baseline Mental Status: mental status grossly normal Speech and Movement: speech and movement normal Mood: congruent mood Affect: normal affect Exam Narrative Exam Narrative: day #1, please see physical examination and progress note dated today, 11/07/2019 Psych Mental Status: mental status grossly normal Speech and Movement: speech and movement normal Mood: congruent mood Affect: normal affect DS: Data Vitals/I&O Vitals and I&O: Vital Signs Pain Level 5 11/07/19 07:40 Intake & Output 11/06/19 11/06/19 11/07/19 11:59 23:59 11:59 Intake Total 954.167 / 954.167 Balance 954.167 / 954.167 Intake: IV 954.167 / 954.167 Data Completed and Pending Labs on day of discharge: Labs from last 24 hours 11/07/19 11/06/19 11/06/19 06:00 09:30 09:30 WBC 22.39 H RBC 2.97 L Hgb 9.3 L Hct 28.5 L MCV 96.0 H MCH 31.3 MCHC 32.6 RDW 14.1 Plt Count 429 H MPV 9.7 Urine Opiates Screen Negative Ur Buprenorphine Pending Ur Norbuprenorphine Pending Urine Methadone Screen Negative Ur Barbiturates Screen Negative Ur Tricyclics Screen Negative Ur Amphetamines Screen Negative U Benzodiazepines Scrn Negative Urine Cocaine Screen Negative Ur THC Screen Negative [facility] Medical History Anti-Li antibody during 2013 . Depression Drug abuse (Resolved) History of IVDA. Patient reports no current use 2019 Gastroesophageal reflux disease Gestational HTN (Acute) Gestational hypertension (Acute) Hepatitis C (Chronic) History of bacterial endocarditis (Resolved) + blood cx Staph Aureus on admission for IUFD 02/04/2013. Rx with po Zyvox x4w. 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 Pt had Prostaglandin IOL. Uncomplicated delivery @ 23w EGA. HRP (high risk ) (Acute) Leg edema, right (Acute) Normal labor (Acute) (normal spontaneous vaginal delivery) (Acute) test positive (Acute) 03/14/2019. Patient counseled regarding options for continuation of or termination Sexually transmitted disease 2012 + Chlamydia and Trichomonas Tobacco use (Acute) Tobacco use disorder Family History Other Adopted Social History Smoking/Tobacco Use Status: Current every day Drug use: Rarely Adopted: Yes (Does not know family history. adoptive mother lives in [place]) Household members: children and other Details: Lives with her son. Patient does not live with boyfriend. Number of Children: 1 current occupation: Patient is employed. She has a car. 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 She reports that he does not want any more children. Distant history of an IUFD at 20 weeks. 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 Most recent uncomplicated History History 4 Para 1 Hx # Term Pregnancies 1 Multiple births 0 Hx # Pregnancies 1 Ectopic pregnancies 0 AB induced Hx Number of Living Children 1 AB spontaneous 1 Past Pregnancies Del. Date GA/Weeks # Outcome Route Wgt Sex Labor Lgth Anesthesia Location Prov Complic Unknown 02/04/13 20 No Unsuccessful vaginal topical cream local regional chrissy cnm other 07/19/18 6 Unsuccessful Delivery Date: Yaneli Anthony Delivery Date: 02/04/13 iufd ARUN AWAN Delivery Date: 07/19/18 1st Trimester SAB Glory Pickett
[2019-11-10 16:24] LABS: Buprenorphine Negative
== END 2019-11-07 19:40 | disposition home or self-care (01) | DRG 806 ==
PROVIDERS: Admitting Provider Obstetrics & Gynecology; PCP Family Medicine; Visit Provider Obstetrics & Gynecology
DX: O12.24 Gestational edema with proteinuria, complicating childbirth (principal); O98.42 Viral hepatitis complicating childbirth; Z37.0 Single live birth; O69.81X0 Labor and delivery complicated by cord around neck, without compression, not applicable or unspecified; O13.4 Gestational [pregnancy-induced] hypertension without significant proteinuria, complicating childbirth; O48.0 Post-term pregnancy; O99.324 Drug use complicating childbirth; O99.334 Smoking (tobacco) complicating childbirth; B18.2 Chronic viral hepatitis C; Z3A.40 40 weeks gestation of pregnancy; F19.10 Other psychoactive substance abuse, uncomplicated; Z67.10 Type A blood, Rh positive; F17.210 Nicotine dependence, cigarettes, uncomplicated
CPT/HCPCS: 36415; 80053; 80307; 85027; 86850; 86900; 86901; 99232; 99238

== ENCOUNTER 2021-07-15 08:22 | Emergency (ER) | payer MEDICAID, SELFPAY ==
[2021-07-15 08:27] VITALS: BP 129/72; PULSE 93; RESP 20; TEMP 36.7; O2SAT 100
[2021-07-15] MEDS: diazePAM 5 MG TAB PO (09:07)
[2021-07-15] MEDS: Ketorolac 30 MG/ML VIAL IM (09:08)
[2021-07-15] MEDS: Lidocaine 5% Patch 1 PATCH TP (09:09)
--- NOTE | 2021-07-15 09:36 | ED.GENADUL_ITS ---
Discharge Plan Disposition Patient Disposition: HOME Condition: Stable Discharge Details Clinical Impression: Acute right-sided low back pain Primary Care Provider: Dottie Mohan ED Provider: Behzad Cowart Home Meds and New Rx's Prescriptions: New diazepam [Valium] 2 mg tablet 2 mg PO BID PRN (Reason: muscle spasm) Qty: 10 0RF Continued ibuprofen 800 mg tablet 800 mg PO TID PRN (Reason: pain) Qty: 30 1RF Discontinued acetaminophen 500 mg Tablet 1,000 mg PO QID PRN0RF Discharge Instructions Instructions: Lumbar Disc Herniation (ED) Additional Instructions: Please follow-up with primary care and be sure to discuss treatment options for your hepatitis C. Please take ibuprofen over the counter. Take 800mg by mouth every 8 hours as needed for pain. Please take acetaminophen (tylenol) - 500mg every 4-6 hours by mouth as needed for pain. Use lidocaine patches? dose according to label. Please contact your primary care physician to arrange follow-up. Return to the ER immediately for any worsening or new concerning symptoms. If pain does not improve Referrals: Dottie Mohan MD [Primary Care Provider] - Medical Decision Making [phone]??35-year-old female with right lower back pain over the past 2 to 3 months, worse this morning. Patient is tender right lumbar spinal and paraspinal. She is neurologically intact. Suspect lumbar disc herniation versus paraspinal muscle spasm. Plan to treat with Toradol IM, Valium, lidocaine patch and reassess. 1145 --patient reassessed and pain significantly improved. Plan for discharge with outpatient follow-up. I instructed patient to follow-up with primary care for both her low back pain but also for referring for treatment of hepatitis C. Disposition decision was made weighing the risks and benefits of hospitalization versus outpatient treatment, the risk for further decompensation, and the patient's wishes. The patient was stable and requested discharge. Prior to discharge, my usual and customary return precautions were reviewed with the patient - this included follow-up instructions and reason to return to the emergency department if condition worsens, does not improve as expected, or other new concerns arise. HPI General Mode of arrival: ambulatory . Date/Time Provider Initiated Documentation: 07/15/21 08:29 . Limitations to Documentation: no limitations . Information obtained by: patient . HPI Narrative: 35-year-old female presents with chief complaint of low back pain. Patient notes low back pain localized to the right for the past 2-3 months. Pain increased this morning and now severe. Pain continues to be localized to right lower back. She notes she has been using icy hot, ibuprofen Tylenol and heating pad. No relief of pain this morning. No associated bowel or bladder dysfunction. Pain described as spasm. No associated numbness or weakness. No fever or rash. Patient notes remote history of IV drug use last used in 2012 and has not used since that time. Related Data Home Medications Medication Instructions Recorded Confirmed ibuprofen 800 mg tablet 800 mg PO TID PRN #30 tab 03/31/20 07/15/21 diazepam 2 mg tablet (Valium) 2 mg PO BID PRN #10 tab 07/15/21 Previous Rx's Medication Instructions Recorded ibuprofen 800 mg tablet 800 mg PO TID PRN #30 tab 03/31/20 diazepam 2 mg tablet (Valium) 2 mg PO BID PRN #10 tab 07/15/21 Allergies Allergy/AdvReac Type Severity Reaction Status Date / Time No Known Allergies Allergy Verified 07/15/21 11:33 General Stated Complaint: Nk/Back Pain RAUL: 3 Review of Systems All systems reviewed & are unremarkable except as noted in HPI and below Constitutional Constitutional: Denies fever(s) Musculoskeletal Musculoskeletal: Reports as per HPI and Reports back pain Integumentary/Breasts Skin/Breast: Denies rash PFSH All Active Problems (Updated 07/15/21 @ 11:04 by Behzad Cowart MD) Acute right-sided low back pain (Acute) Contraception management (Acute) (normal spontaneous vaginal delivery) (Acute) Normal labor (Acute) HRP (high risk ) (Acute) Gestational HTN (Acute) Partial thrombosis (Acute) Leg edema, right (Acute) Gestational hypertension (Acute) Other specified counseling (Acute) Hepatitis C (Chronic) test positive (Acute) 03/14/2019. Patient counseled regarding options for continuation of or termination Tobacco use (Acute) Positive home test (Acute) Her quant is < 1 She does report a positive home test and heavy bleeding post home test She is not and if home correct this is a completed SAB discussed implications and prognosis for future pregnancies discussed rates of miscarriage and no association with infertility or higher miscariiage rate with subsequent pregnancies (Acute) 05/2019: [place] testing negative for trisomy. Medical History (Updated 07/15/21 @ 11:04 by Behzad Cowart MD) Anti-Li antibody during 2013 . Depression Gastroesophageal reflux disease Sexually transmitted disease 2013 + Chlamydia and Trichomonas Tobacco use disorder Family History Other Adopted Social History Smoking/Tobacco Use Status: Current every day Tobacco Type: cigarettes Smoking risk assessment performed?: Yes Drug use: Rarely Substance use type: marijuana Details: edibles Adopted: Yes (Does not know family history. adoptive mother lives in [place]) Household members: children and other Details: Lives with her son. Patient does not live with boyfriend. Number of Children: 1 current occupation: Patient is employed. She has a car. 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 She reports that he does not want any more children. Distant history of an IUFD at 20 weeks. 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 Most recent uncomplicated History History 4 Para 1 Hx # Term Pregnancies 1 Multiple births 0 Hx # Pregnancies 1 Ectopic pregnancies 0 AB induced Hx Number of Living Children 1 AB spontaneous 1 Past Pregnancies Del. Date GA/Weeks # Outcome Route Wgt Sex Labor Lgth Anesthes ia Location Prov Complic Unknown Unknown 02/04/13 20 No Unsuccessful vaginal to pical cream local [facility] other 07/19/18 6 Unsuccessful Delivery Date: Last Updated by: Mily Casillas. Delivery Date: Last Updated by: Radha Boyle LPN Induced gestational hypertension/preclampsia/eclampsia nuchal cord around neck x1 Delivery Date: 02/04/13 Last Updated by: Radha Carrasco CNM iufd Delivery Date: 07/19/18 Last Updated by: Glory Archer LPN 1st Trimester SAB Exam Const General: cooperative and no acute distress HENMT Mouth: moist mucous membranes Eyes Conjunctivae: normal conjunctivae Sclera: normal sclerae Resp Auscultation: clear to auscultation bilaterally, no rales, no rhonchi and no wheezes Cardio Rate: regular rate and not tachycardic Rhythm: regular rhythm Back/Spine/Pelvis Back: No erythema, No warmth and No ecchymosis Cervical Spine: No cervical spinal tenderness and No step off deformity Thoracic/Lumbar Spine: paraspinal tenderness (rt lumbar), No thoracic spinal tenderness and lumbar spinal tenderness (rt L1-L2) Skin General skin exam: no rashes or lesions noted Neuro General: patient alert, patient awake and tone normal Motor: strength 5/5 throughout Sensory Exam: no sensory deficits noted and other (no saddle anesth) DTR's: Rt Patellar: 3+ and Lt Patellar: 3+ Psych Appearance: grossly normal Mental Status: mental status grossly normal Course Vital Signs Vital signs: Vital Signs Temperature 36.7 C 07/15/21 08:27 Pulse 93 H 07/15/21 08:27 Respiratory Rate 20 07/15/21 08:27 Blood Pressure 129/72 07/15/21 08:27 Pulse Oximetry 100 07/15/21 08:27 Temperature 36.7 C 07/15/21 08:27 Temperature Source Temporal Artery Scan 07/15/21 08:27 Pulse 93 H 07/15/21 08:27 Respiratory Rate 20 07/15/21 08:27 Respiratory Effort Non-Labored 07/15/21 08:33 Blood Pressure 129/72 07/15/21 08:27 Blood Pressure Position Standing 07/15/21 08:27 Pulse Oximetry 100 07/15/21 08:27 Oxygen Delivery Method Room Air 07/15/21 08:27 Oxygen Flow Rate 0 07/15/21 08:27 Pain Level 5 07/15/21 09:08 PAWSS Have you Been Recently Intoxicated or Drunk Within the Last 30 days?: No Have you Ever Experienced Previous Episodes of Alcohol Withdrawal?: No Have you ever Experienced Withdrawal Seizures?: No Have you ever Experienced Delirium Tremens(DT)s?: No Have you ever undergone Alcohol Rehabilitation Treatment (i.e, inpt ot outpatient treatment programs)?: No Have you ever Experienced Blackouts?: No Have you ever Combined Alcohol with other Downers within the last 90 days?: No Have you ever Combined Alcohol with any other Substance of Abuse during the last 90 days?: No Positive Blood Alcohol level on Presentation? [PCS.BAL]: No Evidence of Increased Autonomic Activity (i.e. HR>120, tremor, sweating, agitation, nausea)?: No Result: 0
[2021-07-15 11:37] VITALS: BP 133/60; PULSE 70; RESP 16; TEMP 36.4; O2SAT 100
[2021-07-15 11:50] VITALS: BP 133/60; PULSE 70; RESP 16; TEMP 36.4; O2SAT 100
--- NOTE | 2021-07-15 12:06 | NUR.NOTE ---
Nursing Note: Pt info given to care management to be seen for HEP C. To be seen YUMIKO. Billie, ED
== END 2021-07-15 11:51 | disposition home or self-care (01) ==
PROVIDERS: Emergency Provider Student in an Organized Health Care Education/Training Program; PCP Family Medicine
DX: M54.50 Low back pain, unspecified (principal); B18.2 Chronic viral hepatitis C
CPT/HCPCS: 96372; 99284; 99283; J1885

== ENCOUNTER 2021-08-03 19:44 | Outpatient (REF) | payer MEDICAID, SELFPAY | END 2021-08-03 19:45 | disposition home or self-care (01) | LOC: NCHCN 19:44 | PROVIDERS: PCP Family Medicine; Visit Provider Family Medicine ==

== ENCOUNTER 2021-08-07 02:15 | Outpatient (CLI) | payer MEDICAID, SELFPAY ==
[2021-08-07 12:25] LABS: HCT 39.4 % (36.0-46.0); HGB 12.5 g/dL (11.2-15.7); MCH 30.2 pg (27.0-33.0); MCHC 31.7 % (32.0-36.0); MCV 95.2 fL (80-95); MPV 8.7 fL (8.0-11.0); Platelet Count 326 10^3/uL (130-400); RBC 4.14 10^6/uL (3.93-5.22); RDW 12.2 % (11.7-14.6); WBC 11.69 10^3/uL (4.4-10.8)
[2021-08-07 13:08] LABS: ALT 34 U/L (14-59); AST 19 U/L (15-37); Albumin 3.6 g/dL (3.4-5.0); Alkaline Phosphatase 61 U/L (46-116); Anion Gap 8.5 mmol/L (3-11); BUN 10 mg/dL (7-18); Bilirubin, Total 0.5 mg/dL (0.2-1.0); CO2 26.5 mmol/L (21.0-32.0); CREATININE 0.8 mg/dL (0.55-1.02); Calcium 8.6 mg/dL (8.5-10.1); Chloride 105 mmol/L (98-107); Glucose 91 mg/dL (74-106); Potassium 4.4 mmol/L (3.5-5.1); Sodium 140 mmol/L (136-145); Total Protein 7.2 g/dL (6.4-8.2)
[2021-08-08 10:05] LABS: HIV-1/2 Ag & Ab Screen Negative (Negative)
[2021-08-10 09:52] LABS: HBs Antibody, Quant 559.8 mIU/mL (See Note); Hepatitis B Surface Ab Positive (See Note)
[2021-08-10 10:07] LABS: Hepatitis B Surface Ag Negative (Negative)
[2021-08-10 10:42] LABS: Hepatitis C Ab w Rflx HCV PCR Reactive (Negative)
[2021-08-10 11:03] LABS: Hep B Core Antibody Negative (Negative)
[2021-08-10 11:43] LABS: Hep A Antibody IgM Negative (Negative)
[2021-08-10 12:25] LABS: Hep A Total Ab w Rflx IgM Positive (Negative)
[2021-08-10 14:27] LABS: HCV RNA Detection Quantitative 5840 IU/mL (Undetected); HCV RNA Qualitative Detected (Undetected)
== END 2021-08-07 02:16 | disposition home or self-care (01) ==
LOC: LBO 02:15
PROVIDERS: PCP Family Medicine; Visit Provider Family Medicine
DX: B19.20 Unspecified viral hepatitis C without hepatic coma (principal); Z11.4 Encounter for screening for human immunodeficiency virus [HIV]
CPT/HCPCS: 36415; 80053; 85027; 86704; 86706; 86709; 86803; 87340; 87389; 87522

== ENCOUNTER 2021-09-04 23:16 | Outpatient (REF) | payer MEDICAID, SELFPAY | END 2021-09-04 23:17 | disposition home or self-care (01) | LOC: LBN 23:16 | PROVIDERS: PCP Family Medicine; Visit Provider Family Medicine | CPT/HCPCS: 81596 ==

== ENCOUNTER 2022-08-18 15:06 | Outpatient (REF) | payer MEDICAID, SELFPAY ==
[2022-08-18 20:08] LABS: ALT 26 U/L (14-59); AST 28 U/L (15-37); Albumin 3.8 g/dL (3.4-5.0); Alkaline Phosphatase 60 U/L (46-116); Anion Gap 7.1 mmol/L (3-11); BUN 8 mg/dL (7-18); Bilirubin, Total 0.4 mg/dL (0.2-1.0); CO2 25.9 mmol/L (21.0-32.0); CREATININE 0.9 mg/dL (0.55-1.02); Calcium 9.3 mg/dL (8.5-10.1); Chloride 104 mmol/L (98-107); Estimated GFR 86.03 (mL/min/1.73m2); Glucose 86 mg/dL (74-106); Potassium 4.6 mmol/L (3.5-5.1); Sodium 137 mmol/L (136-145); Total Protein 7.9 g/dL (6.4-8.2)
== END 2022-08-18 15:07 | disposition home or self-care (01) ==
LOC: NCHCN 15:06
PROVIDERS: PCP Family Medicine; Visit Provider Nurse Practitioner Family
DX: B19.20 Unspecified viral hepatitis C without hepatic coma (principal)
CPT/HCPCS: 80053

== ENCOUNTER 2022-08-19 14:45 | Outpatient (CLI) | payer MEDICAID, SELFPAY ==
[2022-08-19 11:01] LABS: Abs Immature Grans 0.02 10^3/uL (0.0-0.06); Absolute Basophil Count 0.08 10^3/uL (0.0-0.2); Absolute Eosinophil Count 0.23 10^3/uL (0.0-0.7); Absolute Lymphocyte Count 2.74 10^3/uL (1.2-3.4); Absolute Monocyte Count 0.67 10^3/uL (0.1-0.8); Absolute Neutrophil Count 5.13 10^3/uL (1.2-6.7); Basophils % 0.9; Eosinophils % 2.6; HCT 39.9 % (36.0-46.0); HGB 13.2 g/dL (11.2-15.7); Immature Grans % 0.2; Lymphocytes % 30.9; MCH 30.9 pg (27.0-33.0); MCHC 33.1 % (32.0-36.0); MCV 93 fL (80-95); MPV 8.8 fL (8.0-11.0); Monocytes % 7.6; Neutrophils % 57.8; Platelet Count 305 10^3/uL (130-400); RBC 4.27 10^6/uL (3.93-5.22); RDW 12.4 % (11.7-14.6); RDW-SD 42.7 fL; WBC 8.87 10^3/uL (4.4-10.8)
[2022-08-19 11:17] LABS: ALT 21 U/L (14-59); AST 12 U/L (15-37); Albumin 3.5 g/dL (3.4-5.0); Alkaline Phosphatase 51 U/L (46-116); Anion Gap 6.2 mmol/L (3-11); BUN 8 mg/dL (7-18); Bilirubin, Total 0.4 mg/dL (0.2-1.0); CO2 24.8 mmol/L (21.0-32.0); Calcium 8.6 mg/dL (8.5-10.1); Chloride 103 mmol/L (98-107); Estimated GFR 75.81 (mL/min/1.73m2); Glucose 104 mg/dL (74-106); Sodium 134 mmol/L (136-145); Total Protein 7.5 g/dL (6.4-8.2)
[2022-08-20 12:23] LABS: Hepatitis C Ab w Rflx HCV PCR Reactive (Negative)
[2022-08-23 11:48] LABS: HCV RNA Detection Quantitative 5060 IU/mL (Undetected); HCV RNA Qualitative Detected (Undetected)
== END 2022-08-19 14:46 | disposition home or self-care (01) ==
LOC: LBO 14:47
PROVIDERS: PCP Family Medicine; Visit Provider Nurse Practitioner Family
DX: B19.20 Unspecified viral hepatitis C without hepatic coma (principal)
CPT/HCPCS: 36415; 80053; 86803; 87522; 85025

== ENCOUNTER 2022-08-26 20:16 | Outpatient (REF) | payer MEDICAID, SELFPAY ==
[2022-08-27 09:10] LABS: Hepatitis B Surface Ag Negative (Negative)
[2022-08-27 09:42] LABS: Hep B Core Antibody Negative (Negative)
[2022-08-27 09:52] LABS: HIV-1/2 Ag & Ab Screen Negative (Negative)
== END 2022-08-26 20:17 | disposition home or self-care (01) ==
LOC: NCHCN 20:16
PROVIDERS: PCP Family Medicine; Visit Provider Family Medicine
DX: Z11.59 Encounter for screening for other viral diseases (principal); Z11.4 Encounter for screening for human immunodeficiency virus [HIV]
CPT/HCPCS: 86704; 87340; 87389

== ENCOUNTER 2023-01-18 17:54 | Outpatient (REF) | payer MEDICAID, SELFPAY ==
[2023-01-18 15:59] LABS: Abs Immature Grans 0.04 10^3/uL (0.0-0.06); Absolute Eosinophil Count 0.32 10^3/uL (0.0-0.7); Absolute Lymphocyte Count 4.27 10^3/uL (1.2-3.4); Basophils % 0.8; Eosinophils % 2.6; HCT 40.4 % (36.0-46.0); HGB 13.3 g/dL (11.2-15.7); Immature Grans % 0.3; MCH 30.5 pg (27.0-33.0); MCHC 32.9 % (32.0-36.0); MCV 93 fL (80-95); MPV 9.6 fL (8.0-11.0); Monocytes % 5.2; Neutrophils % 56.1; Platelet Count 365 10^3/uL (130-400); RBC 4.36 10^6/uL (3.93-5.22); RDW-SD 41.3 fL
[2023-01-18 16:05] LABS: ALT 12 U/L (14-59); AST 10 U/L (15-37); Albumin 3.7 g/dL (3.4-5.0); Alkaline Phosphatase 65 U/L (46-116); Anion Gap 7.6 mmol/L (3-11); BUN 11 mg/dL (7-18); Bilirubin, Total 0.5 mg/dL (0.2-1.0); CO2 26.4 mmol/L (21.0-32.0); CREATININE 0.9 mg/dL (0.55-1.02); Calcium 9.4 mg/dL (8.5-10.1); Chloride 102 mmol/L (98-107); Glucose 82 mg/dL (74-106); Potassium 4.6 mmol/L (3.5-5.1); Sodium 136 mmol/L (136-145); Total Protein 7.6 g/dL (6.4-8.2)
[2023-01-18 16:15] LABS: Absolute Monocyte Count 0.63 10^3/uL (0.1-0.8); Absolute Neutrophil Count 6.84 10^3/uL (1.2-6.7)
[2023-01-19 11:19] LABS: HCV RNA Qualitative Undetected (Undetected)
== END 2023-01-18 17:55 | disposition home or self-care (01) ==
LOC: NCHCN 17:54
PROVIDERS: PCP Family Medicine; Visit Provider Family Medicine
DX: B19.20 Unspecified viral hepatitis C without hepatic coma (principal)
CPT/HCPCS: 80053; 87522; 85025

== ENCOUNTER 2023-03-17 11:25 | Emergency (ER) | payer MEDICAID, SELFPAY ==
[2023-03-17 11:31] VITALS: BP 145/89; PULSE 85; RESP 16; TEMP 37.1; O2SAT 96
--- NOTE | 2023-03-17 11:36 | ED.GENADUL_ITS ---
Discharge Plan Disposition Patient Disposition: Home Condition: Stable Discharge Details Clinical Impression: Pain, dental Primary Care Provider: Dottie Mohan ED Provider: Rhonda Weaver Home Meds and New Rx's Prescriptions: New amoxicillin-pot clavulanate 875-125 mg tablet 1 tab PO BID 10 Days Qty: 20 0RF No Action ibuprofen 800 mg tablet 800 mg PO TID PRN (Reason: pain) Qty: 30 1RF buprenorphine-naloxone [Suboxone] 8-2 mg film Patient Comments: PLACE TWO FILMS UNDER THE TONGUE EVERY DAY Discharge Instructions Instructions: Toothache (ED) Additional Instructions: Rinse mouth out after eating or drinking anything. [place] teeth twice daily. Please see a dentist. Use the hurricaine gel up to three times daily to the affected area. Take the antibiotics with yogurt or a probiotic daily. You do still need to see a dentist. Follow up with primary care provider in 3-5 days. Return to ED sooner if any worsening or concerns. Increase oral fluids. Please take Tylenol or Ibuprofen with food every 4-6 hours as needed for pain and swelling. Referrals: Dottie Mohna MD [Primary Care Provider] - 3 days Medical Decision Making 37 year old female presents to the ED with left lower dental pain. It began to get worse last night. No area of fluctuance or abscess noted. Is speaking in full sentences and denies fever, or throat pain. No drainage. Patient is a daily smoker. Patient given augmentin and hurricaine gel. Given dental resources and instructed on oral hygiene and smoking cessation. This text was generated using [employer] dictation system, please disregard any oddities of phrase or misspellings. HPI General Mode of arrival: ambulatory . Date/Time Provider Initiated Documentation: 03/17/23 11:30 . Limitations to Documentation: no limitations . Information obtained by: patient, RN notes reviewed and old records reviewed . HPI Narrative: 37 year old female presents to the ED with left lower dental pain. It began to get worse last night. No area of fluctuance or abscess noted. Is speaking in full sentences and denies fever, or throat pain. No drainage. Patient is a daily smoker. Related Data Home Medications Medication Instructions Recorded Confirmed ibuprofen 800 mg tablet 800 mg PO TID PRN pain #30 tabs 03/31/20 03/17/23 amoxicillin 875 mg-potassium 1 tab PO BID 10 days #20 tabs 11/23/23 clavulanate 125 mg tablet buprenorphine 8 mg-naloxone 2 mg film 03/17/23 sublingual film (Suboxone) Previous Rx's Medication Instructions Recorded ibuprofen 800 mg tablet 800 mg PO TID PRN pain #30 tabs 03/31/20 amoxicillin 875 mg-potassium 1 tab PO BID 10 days #20 tabs 03/17/23 clavulanate 125 mg tablet Allergies Allergy/AdvReac Type Severity Reaction Status Date / Time No Known Allergies Allergy Verified 03/17/23 11:34 General Stated Complaint: DentalOral RAUL: 4 Review of Systems ENT Ears, Nose, Mouth, and Throat: Reports dental pain PFSH All Active Problems (Updated 03/17/23 @ 11:41 by Rhonda Weaver NP) Pain, dental (Acute) Contraception management (Acute) (normal spontaneous vaginal delivery) (Acute) Normal labor (Acute) HRP (high risk ) (Acute) Gestational HTN (Acute) Partial thrombosis (Acute) Leg edema, right (Acute) Gestational hypertension (Acute) Other specified counseling (Acute) Hepatitis C (Chronic) test positive (Acute) 03/14/2019. Patient counseled regarding options for continuation of or termination Tobacco use (Acute) Positive home test (Acute) Her quant is < 1 She does report a positive home test and heavy bleeding post home test She is not and if home correct this is a completed SAB discussed implications and prognosis for future pregnancies discussed rates of miscarriage and no association with infertility or higher miscariiage rate with subsequent pregnancies (Acute) 05/2019: [place] testing negative for trisomy. Medical History (Updated 03/17/23 @ 11:41 by Rhonda Weaver NP) Gastroesophageal reflux disease Tobacco use disorder Sexually transmitted disease 2012 + Chlamydia and Trichomonas Depression Anti-Li antibody during 2013 . Family History Other Adopted Social History Smoking/Tobacco Use Status: Current every day Tobacco Type: cigarettes Smoking risk assessment performed?: Yes Drug use: Rarely Substance use type: marijuana Details: edibles, on suboxone Adopted: Yes (Does not know family history. adoptive mother lives in [place]) Household members: children and other Details: Lives with her son. Patient does not live with boyfriend. Housing: apartment Number of Children: 1 current occupation: Patient is employed. She has a car. 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 She reports that he does not want any more children. Distant history of an IUFD at 20 weeks. 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 Most recent uncomplicated History History 2 4 Para 1 Hx # Term Pregnancies 1 Multiple births 0 Hx # Pregnancies 1 Ectopic pregnancies 0 AB induced Hx Number of Living Children 1 AB spontaneous 1 Past Pregnancies Del. Date GA/Weeks # Preg Succ Route Wgt Sex Labor Lgth Anesth esia Location Prov Complic Unknown Unknown 02/04/13 20 No vaginal topical cream local regional [facility] other 07/19/18 6 Delivery Date: Last Updated by: Mily Casillas. Delivery Date: Last Updated by: Radha Boyle LPN Induced gestational hypertension/preclampsia/eclampsia nuchal cord around neck x1 Delivery Date: 02/04/13 Last Updated by: Radha Carrasco CNM iufd Delivery Date: 07/19/18 Last Updated by: Glory Archer LPN 1st Trimester SAB Exam HENMT Teeth and gingiva: abnormal tooth or associated gingiva lower left tender, caries and poor dentition Teeth image: 2 1. Eroded tooth Throat: posterior oropharynx normal Course Vital Signs Vital signs: Vital Signs Temperature 37.1 C 03/17/23 11:31 Pulse 85 03/17/23 11:31 Respiratory Rate 16 03/17/23 11:31 Blood Pressure 145/89 H 03/17/23 11:31 Pulse Oximetry 96 03/17/23 11:31 Temperature 37.1 C 03/17/23 11:31 Temperature Source Temporal Artery Scan 03/17/23 11:31 Pulse 85 03/17/23 11:31 Respiratory Rate 16 03/17/23 11:31 Blood Pressure 145/89 H 03/17/23 11:31 Blood Pressure Position Sitting 03/17/23 11:31 Pulse Oximetry 96 03/17/23 11:31 Oxygen Delivery Method Room Air 03/17/23 11:31 Oxygen Flow Rate 0 03/17/23 11:31 Pain Level 8 03/17/23 11:31
[2023-03-17] MEDS: Amoxicillin 875/Clav. 125 TAB PO (11:50)
[2023-03-17] MEDS: Amox. 875/Clav. 125, 2 TABS/BTL 1 TAB PO (11:50)
[2023-03-17] MEDS: Benzocaine 20% Gel 30 GM JAR MM (11:52)
== END 2023-03-17 12:02 | disposition home or self-care (01) ==
PROVIDERS: Emergency Provider Registered Nurse Emergency; PCP Family Medicine
DX: R68.84 Jaw pain (principal); K08.89 Other specified disorders of teeth and supporting structures
CPT/HCPCS: 99283

== ENCOUNTER 2023-05-19 11:32 | Outpatient (REF) | payer MEDICAID, SELFPAY ==
--- NOTE | 2023-05-19 11:10 | PAPFT_PTH ---
PATIENT: Magnolia Gipson LOC: [facility]#:[id number] AGE/SX: 37/F ROOM: RE05/19/[address]: SMILEY BISHOP : 1985 BED: DIS: 05/19/2023 SPEC #: [id number] RECD: 05/20/23 12:27 STATUS: MCKAY REQ #: [id number] OLIVIA: 05/19/23 11:[address]: Smiley Bishop DEPT: [facility] Cytology RECD BY: Alexandra Ross ENTERED: 05/20/23 12:28 SP TYPE: PAPFT OTHR DR: Dottie Mohan Tissues: 1 - CX/ENDOCX FOR PAP SMEARS Procedures: PAP THIN PREP/[facility] Screening HPV DNA PROBE Comments: [id number] (CHLAMYDIA/GC)
[2023-05-23 14:04] LABS: Chlamydia Result Negative (Negative); GC Result Negative (Negative)
== END 2023-05-19 11:33 | disposition home or self-care (01) ==
LOC: NCHCN 11:32
PROVIDERS: PCP Family Medicine; Visit Provider Nurse Practitioner Family
DX: Z01.419 Encounter for gynecological examination (general) (routine) without abnormal findings (principal)
CPT/HCPCS: 87491; 87591; 88142; 87480; 87510; 87624; 87660

== ENCOUNTER 2023-06-10 12:06 | Outpatient (REF) | payer MEDICAID, SELFPAY ==
[2023-06-10 16:02] LABS: Abs Immature Grans 0.03 10^3/uL (0.0-0.06); Absolute Basophil Count 0.08 10^3/uL (0.0-0.2); Absolute Lymphocyte Count 4.65 10^3/uL (1.2-3.4); Absolute Monocyte Count 0.61 10^3/uL (0.1-0.8); Absolute Neutrophil Count 6.45 10^3/uL (1.2-6.7); Basophils % 0.7; Eosinophils % 2.5; HCT 40.4 % (36.0-46.0); HGB 13.3 g/dL (11.2-15.7); Immature Grans % 0.2; Lymphocytes % 38.4; MCH 30.6 pg (27.0-33.0); MCHC 32.9 % (32.0-36.0); MCV 93 fL (80-95); MPV 9.9 fL (8.0-11.0); Neutrophils % 53.2; Platelet Count 312 10^3/uL (130-400); RBC 4.35 10^6/uL (3.93-5.22); RDW 12.9 % (11.7-14.6); RDW-SD 44.3 fL; WBC 12.12 10^3/uL (4.4-10.8)
[2023-06-10 17:21] LABS: ALT 16 U/L (14-59); AST 12 U/L (15-37); Albumin 3.8 g/dL (3.4-5.0); Alkaline Phosphatase 64 U/L (46-116); Anion Gap 11.4 mmol/L (3-11); BUN 11 mg/dL (7-18); Bilirubin, Total 0.3 mg/dL (0.2-1.0); CO2 24.6 mmol/L (21.0-32.0); CREATININE 0.8 mg/dL (0.55-1.02); Calcium 9.4 mg/dL (8.5-10.1); Chloride 103 mmol/L (98-107); Estimated GFR 98.48 (mL/min/1.73m2); Glucose 74 mg/dL (74-106); Potassium 4.6 mmol/L (3.5-5.1); Sodium 139 mmol/L (136-145); Total Protein 7.7 g/dL (6.4-8.2)
[2023-06-10 17:26] LABS: Hemoglobin A1C 5.6 % (<5.7)
[2023-06-10 23:01] LABS: Hepatitis C Ab w Rflx HCV PCR Reactive (Negative)
[2023-06-10 23:04] LABS: HIV-1/2 Ag & Ab Screen Negative (Negative)
[2023-06-13 10:36] LABS: Syphilis Serology (RPR) Negative (Negative)
[2023-06-13 13:15] LABS: HCV RNA Qualitative Undetected (Undetected)
== END 2023-06-10 12:07 | disposition home or self-care (01) ==
LOC: NCHCN 12:06
PROVIDERS: PCP Family Medicine; Referring Provider Nurse Practitioner Family; Visit Provider Nurse Practitioner Family
DX: B19.20 Unspecified viral hepatitis C without hepatic coma (principal); Z13.1 Encounter for screening for diabetes mellitus; Z11.3 Encounter for screening for infections with a predominantly sexual mode of transmission; Z11.4 Encounter for screening for human immunodeficiency virus [HIV]
CPT/HCPCS: 80053; 86803; 87389; 87522; 83036; 85025; 86592

== ENCOUNTER 2024-09-20 13:26 | Emergency (ER) | payer MEDICAID, SELFPAY ==
[2024-09-20 13:29] VITALS: BP 134/80; PULSE 82; RESP 20; TEMP 36.6; O2SAT 95
--- NOTE | 2024-09-20 13:45 | DI.RAD_ITS ---
Exam(s) XR KNEE RT 3V AP,LAT,LORI EXAM: XR KNEE RT 3V AP,LAT,LORI CLINICAL HISTORY: step down and felt pop. TECHNIQUE: 2D digital imaging was performed. COMPARISON: No exams were available for comparison FINDINGS: 3 views No evidence acute fracture but there is a significant joint effusion signifying internal derangement. There are no degenerative changes nor osseous lesions. 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 IMPRESSION: No acute osseous findings in the but there is a prominent joint effusion signifying internal derangem ent. Benign-appearing nonexpansile cyst eccentric sclerotic bone lesion in the distal femur incidentally n oted. DATA REPOSITORY: RADIATION DOSE DELIVERED:
--- NOTE | 2024-09-20 14:15 | DI.RAD_ITS ---
Exam(s) XR ANKLE RT COMPLETE EXAM: XR ANKLE RT COMPLETE CLINICAL HISTORY: stepped down, pain and swelling. TECHNIQUE: 2D digital imaging was performed. COMPARISON: No exams were available for comparison FINDINGS: 3 views There is some soft tissue swelling both sides the ankle. No evidence of acute fracture or widening the ankle mortise. Talar dome unremarkable. No degenerative changes. No tarsal coalition evident. IMPRESSION: Soft tissue swelling but no acute osseous findings in the ankle. DATA REPOSITORY: RADIATION DOSE DELIVERED:
--- NOTE | 2024-09-20 14:15 | DI.US_ITS ---
Exam(s) US LOWER EXTREMITY VENOUS RT EXAM: US LOWER EXTREMITY VENOUS RT CLINICAL HISTORY: Eval DVT, whole leg swollen TECHNIQUE: Grayscale, color, and doppler imaging of the deep venous system of the right lower extrem ity was performed. COMPARISON: US US OB COLEEN WEIGHT from 10/09/2019 FINDINGS: There is no evidence of intraluminal thrombus and there is normal compression and augmentation demons trated within the common femoral vein, femoral vein, and popliteal vein. In the ipsilateral calf the interrogated veins also exhibit normal compression/ augmentation properti es. The ipsilateral saphenofemoral junction is patent. Some dilated veins in the calf are noted but these do not exhibit intraluminal thrombus. IMPRESSION: 1. No evidence of DVT in the right lower extremity. DATA REPOSITORY:
--- NOTE | 2024-09-20 14:24 | ED.GENADUL_ITS ---
Discharge Plan Disposition Patient Disposition: Home Condition: Stable Discharge Details Chief Complaint: Orthopedic Clinical Impression: Internal derangement of right knee, Leg edema, right Primary Care Provider: HERBIE RODRIGUEZ ED Provider: Esmer Crum Home Meds and New Rx's Prescriptions: No Action ibuprofen 800 mg tablet 800 mg PO TID PRN (Reason: pain) Qty: 30 1RF buprenorphine-naloxone [Suboxone] 8-2 mg film 2 film sublingual DAILY Patient Comments: PLACE TWO FILMS UNDER THE TONGUE EVERY DAY buspirone 5 mg tablet 5 mg PO TID PRN (Reason: anxiety) Patient Comments: TAKE ONE TABLET BY MOUTH THREE TIMES A DAY NEEDED FOR ANXIETY sertraline 100 mg tablet 200 mg PO DAILY Patient Comments: TAKE TWO TABLETS BY MOUTH EVERY DAY Discharge Instructions Instructions: Internal Derangement of the Knee (DC) Additional Instructions: You were seen in the emergency department today for evaluation of a knee injury, which is concerning for a sprain/internal derangement. You had x-ray imaging that showed the fluid and swelling inside your knee, and had a negative ultrasound that did not show blood clots in your legs. You had no evidence of broken bones. We have placed you in a hinged knee brace which you should wear when you are up and about. Please use ice and elevation to reduce swelling. Please use therapeutic dosing of Tylenol (acetaminophen) & Advil (ibuprofen) in an alternating fashion as follows: Take 1000mg of Tylenol every 6 hours without missing doses- that is 4 times per day. [place] in between the Tylenol doses, take 600mg of Advil also on a 6 hour schedule, that is also 4 times per day. With this strategy, you will be taking something for fever/pain as often as every 3 hours. The daily maximum dosing of Tylenol is 4000mg, and the daily maximum dosing of Advil is 2400mg. Please note that some common cold medications & prescription pain medications may contain acetaminophen and you need to read OTC drug labels and factor that in to maximum daily doses. We placed a referral to orthopedics, you should follow-up in the next 1 to 2 weeks for reevaluation. Please follow-up with your primary care provider in the next few days to discuss this visit and any symptoms that change, worsen, or persist. Thank you for allowing us to be part of your care. Referrals: Ney Molina MD [ [facility] STAFF PHYSICIAN] - 1 week HPI General Mode of arrival: ambulatory . Date/Time Provider Initiated Documentation: 09/20/24 13:55 . Limitations to Documentation: no limitations . Information obtained by: patient and old records reviewed . 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 On Tuesday the patient stepped off a bench and felt her knee pop, immediately having pain in the front side of her knee. She has had to continue to work and is on her feet, is able to bear weight and has been wrapping it with an Nickolas wrap. Over the last few days she has noted swelling and discomfort in her posterior calf, and now has swelling in her ankle. No sensory changes, no weakness or numbness, but flexion and extension of the knee causes pain. The patient reports that she uses an IUD for prevention and has no history of thromboembolic disease. She did not injure any other part of her body during this event. She has been managing her pain at home with Tylenol. She reports that she feels unsteady and painful when she bears weight on the knee. Related Data Home Medications ?Medication ?Instructions ?Recorded ?Confirmed ibuprofen 800 mg tablet 800 mg PO TID PRN pain #30 tabs 03/31/20 09/20/24 buprenorphine 8 mg-naloxone 2 mg 2 film sublingual DAILY 03/17/23 09/20/24 sublingual film (Suboxone) buspirone 5 mg tablet 5 mg PO TID PRN anxiety 09/20/24 09/20/24 sertraline 100 mg tablet 200 mg PO DAILY 09/20/24 09/20/24 Previous Rx's ?Medication ?Instructions ?Recorded ibuprofen 800 mg tablet 800 mg PO TID PRN pain #30 tabs 03/31/20 Allergies Allergy/AdvReac Type Severity Reaction Status Date / Time No Known Allergies Allergy Verified 09/20/24 13:32 General Stated Complaint: Orthopedic RAUL: 4 Exam Narrative Exam Narrative: Gen: Awake and alert, in no apparent distress HEENT: Non-icteric sclera Neck: Supple Lungs: No apparent respiratory distress, normal respiratory effort. CV: Appears well perfused, strong distal pulses Abdomen: Non-distended MSK: Moves 4 extremities without apparent limitation in ROM with the exception of the right lower extremity. The patient has tenderness to palpation over the patellar tendon, as well as the medial and lateral joint lines. No overlying skin changes, small effusion palpable. The patient has pain with passive range of motion, no l significant axity appreciated with valgus or varus testing, nor Joslyn's. The patient does have 1+ peripheral edema to the right leg, no edema appreciated to the left, some tenderness to the anterior aspect of the ankle but no tenderness overlying the medial or lateral malleoli. Strong DP pulses and CSM's intact right foot Skin: Visualized skin without rashes, cyanosis. Neuro: Antalgic gait, no obvious focal deficits or facial asymmetry. Speaks in full, clear sentences. Psych: Appropriate for situation. Course Vital Signs Vital signs: Vital Signs Temperature 36.6 C 09/20/24 13:29 Pulse 82 09/20/24 13:29 Respiratory Rate 20 09/20/24 13:29 Blood Pressure 134/80 09/20/24 13:29 Pulse Oximetry 95 09/20/24 13:29 Temperature 36.6 C 09/20/24 13:29 Pulse 82 09/20/24 13:29 Respiratory Rate 20 09/20/24 13:29 Blood Pressure 134/80 09/20/24 13:29 Blood Pressure Position Sitting 09/20/24 13:29 Pulse Oximetry 95 09/20/24 13:29 Oxygen Delivery Method Room Air 09/20/24 13:29 Oxygen Flow Rate 0 09/20/24 13:29 Medical Decision Making This is a 39-year-old female patient presenting for evaluation of right lower extremity injury. My differential includes but is not limited to fracture, dislocation, specifically of the knee and ankle. Considered sprain and strain, internal derangement of the knee. Given the calf tenderness and whole leg swelling I also considered DVT. No evidence for arterial occlusion with the strong pulses, and no neurodeficits. I provided the patient with Tylenol ibuprofen and we will obtain a duplex ultrasound as well as x-rays of the knee and ankle of that right lower extremity. At this time I do not see an indication to proceed with laboratory studies in this otherwise young and healthy person. - X-ray of the knee demonstrates a joint effusion concerning for internal derangement, no fracture or dislocation. Benign sclerotic lesion appreciated in the distal femur. Ankle x-ray without evidence of fracture or dislocation, soft tissue swelling appreciated. No DVT on lower extremity ultrasound. The patient was placed in a hinged knee brace given our concern for internal derangement, and a referral to orthopedics was placed. I counseled the patient on conservative management, and at this time, the patient has had a full medical evaluation and is safe for discharge to home. They are hemodynamically stable, ambulatory, and tolerating PO. They are understanding of the follow-up plan and return precautions. They left our facility without incident. Esmer Crum MD Medical Records Medical records reviewed: Yes I reviewed the patient's medical records. Quality:[facility] Health Related Social Needs: No Data to Display PFSH All Active Problems (Updated 09/20/24 @ 15:54 by Esmer Crum MD) Internal derangement of right knee (Acute) Contraception management (Acute) (normal spontaneous vaginal delivery) (Acute) Normal labor (Acute) HRP (high risk ) (Acute) Gestational HTN (Acute) Partial thrombosis (Acute) Leg edema, right (Acute) Gestational hypertension (Acute) Other specified counseling (Acute) Hepatitis C (Chronic) test positive (Acute) 03/14/2019. Patient counseled regarding options for continuation of or termination Tobacco use (Acute) Positive home test (Acute) Her quant is < 1 She does report a positive home test and heavy bleeding post home test She is not and if home correct this is a completed SAB discussed implications and prognosis for future pregnancies discussed rates of miscarriage and no association with infertility or higher miscariiage rate with subsequent pregnancies (Acute) 05/2019: [place] testing negative for trisomy. Medical History (Updated 09/20/24 @ 15:54 by Esmer Crum MD) Gastroesophageal reflux disease Tobacco use disorder Sexually transmitted disease 2012 + Chlamydia and Trichomonas Depression Anti-Li antibody during 2013 . Family History Other Adopted Social History Smoking/Tobacco Use Status: Current every day Tobacco Type: cigarettes Smoking risk assessment performed?: Yes Drug use: Rarely Substance use type: marijuana Details: edibles, on suboxone Adopted: Yes (Does not know family history. adoptive mother lives in [place]) Household members: children and other Details: Lives with her son. Patient does not live with boyfriend. Housing: apartment Number of Children: 1 current occupation: Patient is employed. She has a car. 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 She reports that he does not want any more children. Distant history of an IUFD at 20 weeks. 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 Most recent uncomplicated History History 4 Para 1 Hx # Term Pregnancies 1 Multiple births 0 Hx # Pregnancies 1 Ectopic pregnancies 0 AB induced Hx Number of Living Children 1 AB spontaneous 1 Past Pregnancies Del. Date GA/Weeks # Preg Succ Route Wgt Sex Labor Lgth Anesth esia Location Prov Complic Unknown Unknown 02/04/13 20 No vaginal topical cream local [facility] other 07/19/18 6 Delivery Date: Last Updated by: Mily Casillas. Delivery Date: Last Updated by: Radha Boyle LPN Induced gestational hypertension/preclampsia/eclampsia nuchal cord around neck x1 Delivery Date: 02/04/13 Last Updated by: Radha Carrasco CNM iufd Delivery Date: 07/19/18 Last Updated by: Glory Archer LPN 1st Trimester SAB
[2024-09-20] MEDS: Ibuprofen 600 MG TAB PO (15:03)
[2024-09-20] MEDS: Acetaminophen 500 MG TAB 1000 MG PO (15:03)
[2024-09-20 15:25] VITALS: BP 141/97; PULSE 75; RESP 18; O2SAT 96
[2024-09-20 16:12] VITALS: BP 145/92; PULSE 67; RESP 18; O2SAT 96
== END 2024-09-20 16:12 | disposition home or self-care (01) ==
PROVIDERS: Emergency Provider Emergency Medicine; PCP Nurse Practitioner Family
DX: M23.91 Unspecified internal derangement of right knee (principal); M25.461 Effusion, right knee; F17.210 Nicotine dependence, cigarettes, uncomplicated
CPT/HCPCS: 73562; 99283; 73610; 93971